=== PATIENT | female | born 1960 | race Caucasian/White ===

== ENCOUNTER 2018-03-13 17:24 | Emergency (ER) | payer OTHER | END 2018-03-13 18:15 | disposition home or self-care (01) | LOC: NAV ERS 17:24 | DX: S33.5XXA Sprain of ligaments of lumbar spine, initial encounter (principal); S40.021A Contusion of right upper arm, initial encounter; I10 Essential (primary) hypertension; F17.210 Nicotine dependence, cigarettes, uncomplicated; F32.9 Major depressive disorder, single episode, unspecified; Z79.899 Other long term (current) drug therapy; Z79.891 Long term (current) use of opiate analgesic; W19.XXXA Unspecified fall, initial encounter | CPT/HCPCS: 99283 ==